=== PATIENT | female | born 1965 | race Caucasian/White ===

== ENCOUNTER 2023-11-19 08:59 | Outpatient (CLI) | payer BC, SELFPAY ==
[2023-11-19 09:45] LABS: Alanine Aminotransferase 21 U/L (6-35); Aspartate Amino Transferase 26 U/L (14-36)
== END 2023-11-19 09:00 | disposition home or self-care (01) ==
LOC: ANHLAB 09:02
PROVIDERS: PCP Physician Assistant; Visit Provider Podiatrist Foot & Ankle Surgery
DX: B35.1 Tinea unguium (principal)
CPT/HCPCS: 36415; 84450; 84460

== ENCOUNTER 2024-02-18 10:34 | Outpatient (CLI) | payer BC, SELFPAY ==
[2024-02-18 11:08] LABS: Basophils Absolute Auto 0.1 K/mm3 (0.0-0.1); Basophils Percent Auto 0.7 % (0.2-1.2); Eosinophils Absolute Auto 0.2 K/mm3 (0-0.3); Eosinophils Percent Auto 3.2 % (0-4.4); Hematocrit 45.9 % (37.0-47.0); Hemoglobin 15.2 g/dL (12.0-15.0); Immature Granulocyte Absolute 0.01 K/mm3 (0.00-0.031); Immature Granulocyte Percent A 0.1 % (0-0.5); Lymphocytes Absolute Auto 2.81 K/mm3 (0.9-3.2); Lymphocytes Percent Auto 40.8 % (18.3-44.2); Mean Corpuscular HGB Conc 33.1 g/dl (32-36); Mean Corpuscular Hemoglobin 31.5 pg (26-34); Monocytes Absolute Auto 0.4 K/mm3 (0.1-0.6); Monocytes Percent Auto 6.1 % (2.6-8.5); Neutrophils Absolute Auto 3.4 K/mm3 (1.3-6.7); Neutrophils Percent Auto 49.1 % (45.5-73.1); Platelet Count Result 197 k/mm3 (150-375); Red Blood Count 4.83 M/mm3 (4.2-5.4); Red Cell Distribution Width 12.3 % (11.5-14.5); White Blood Count 6.9 K/mm3 (4.5-10.0)
[2024-02-18 11:32] LABS: Alanine Aminotransferase 29 U/L (6-35); Albumin Level 4.8 g/dL (3.5-5.1); Alkaline Phosphatase 85 U/L (38-126); Anion Gap 7 mmol/L (4-12); Aspartate Amino Transferase 35 U/L (14-36); Bilirubin,Total 0.5 mg/dL (0.2-1.3); Blood Urea Nitrogen 11 mg/dL (7-17); Carbon Dioxide 27 mmol/L (22-30); Chloride 106 mmol/L (98-107); Cholesterol 188 mg/dL (0-200); Estimated Glomerular Filt Rate > 60; Glucose 127 mg/dL (65-110); HDL Direct 80 mg/dL; Hemoglobin A1C 6.8 % (<5.7); Potassium 4.3 mmol/L (3.4-5.0); Sodium 140 mmol/L (137-145); Triglycerides 165 mg/dL (<150)
[2024-02-18 11:43] LABS: LDL Cholesterol Direct 87 mg/dL
[2024-02-18 11:47] LABS: Iron 101 ug/dL (37-170); Vitamin D 25 Hydroxy 45.9 ng/mL
[2024-02-18 11:49] LABS: Creatinine Urine 248.7 mg/dL
[2024-02-18 11:54] LABS: MALB Creatinine Ratio 14.8 mg/g (0-30); Microalbumin Urine Random 36.9 mg/L (0-16.7)
[2024-02-18 11:55] LABS: Percent Iron Saturation 39 % (20-50)
[2024-02-18 12:44] LABS: Folic Acid 6.6 ng/mL (2.76->20); Free T4 Free Thyroxine 0.98 ng/mL (0.78-2.19)
== END 2024-02-18 10:35 | disposition home or self-care (01) ==
PROVIDERS: PCP Physician Assistant; Referring Provider Podiatrist Foot & Ankle Surgery; Visit Provider Physician Assistant
DX: E11.9 Type 2 diabetes mellitus without complications (principal); R41.3 Other amnesia; Z98.84 Bariatric surgery status; Z79.899 Other long term (current) drug therapy; Z13.220 Encounter for screening for lipoid disorders
CPT/HCPCS: 36415; 80053; 80061; 82043; 82306; 82607; 82728; 82746; 83036; 83540; 83550; 83735; 84439; 84443; 85025

== ENCOUNTER 2024-05-26 11:21 | Outpatient (CLI) | payer BC, SELFPAY ==
[2024-05-26 11:59] LABS: Basophils Percent Auto 0.6 % (0.2-1.2); Eosinophils Absolute Auto 0.1 K/mm3 (0-0.3); Eosinophils Percent Auto 1.5 % (0-4.4); Hematocrit 45.9 % (37.0-47.0); Hemoglobin 14.6 g/dL (12.0-15.0); Immature Granulocyte Absolute 0.01 K/mm3 (0.00-0.031); Immature Granulocyte Percent A 0.1 % (0-0.5); Mean Corpuscular HGB Conc 31.8 g/dl (32-36); Mean Corpuscular Hemoglobin 30.4 pg (26-34); Mean Corpuscular Volume 95.6 fl (80-100); Mean Platelet Volume 10.2 fl (7.4-10.4); Monocytes Absolute Auto 0.5 K/mm3 (0.1-0.6); Monocytes Percent Auto 6.7 % (2.6-8.5); Neutrophils Absolute Auto 3.6 K/mm3 (1.3-6.7); Neutrophils Percent Auto 53.1 % (45.5-73.1); Platelet Count Result 199 k/mm3 (150-375); Red Cell Distribution Width 12.5 % (11.5-14.5); White Blood Count 6.9 K/mm3 (4.5-10.0)
[2024-05-26 12:24] LABS: Alanine Aminotransferase 24 U/L (6-35); Albumin Level 4.8 g/dL (3.5-5.1); Alkaline Phosphatase 79 U/L (38-126); Anion Gap 6 mmol/L (4-12); Aspartate Amino Transferase 30 U/L (14-36); Bilirubin,Total 0.5 mg/dL (0.2-1.3); Blood Urea Nitrogen 15 mg/dL (7-17); Calcium 9.1 mg/dL (8.4-10.2); Carbon Dioxide 29 mmol/L (22-30); Chloride 103 mmol/L (98-107); Estimated Glomerular Filt Rate > 60; Glucose 91 mg/dL (65-110); Potassium 4.2 mmol/L (3.4-5.0); Sodium 138 mmol/L (137-145)
[2024-05-26 12:58] LABS: Free T4 Free Thyroxine 1.09 ng/mL (0.78-2.19)
== END 2024-05-26 11:22 | disposition home or self-care (01) ==
LOC: ANHLAB 11:27
PROVIDERS: PCP Physician Assistant; Referring Provider Podiatrist Foot & Ankle Surgery; Visit Provider Physician Assistant
DX: B35.1 Tinea unguium (principal); E11.9 Type 2 diabetes mellitus without complications
CPT/HCPCS: 36415; 80053; 83036; 84439; 84443; 85025

== ENCOUNTER 2024-06-30 08:00 | Outpatient (CLI) | payer BC, SELFPAY ==
--- NOTE | ~2024-06-30 | CT_ITS ---
EXAMINATION: CT abdomen pelvis w con DATE: 06/30/2024 08:41 INDICATION: Left lower quadrant abdominal pain TECHNIQUE: Computed tomography (CT) of the abdomen and pelvis was performed with 100 mL Omnipaque-350 intravenous contrast. Automated exposure control and iterative reconstruction technique were employe d. The dose-length product was 907.04 mGy-cm. COMPARISON: None FINDINGS: Lung bases are clear. Heart size is normal. No pericardial or pleural effusion. Small sliding-type hi atal hernia and postoperative change of prior sleeve gastrectomy with suture line along the greater c urvature of the stomach. A couple hepatic cysts the largest in the left hepatic lobe measuring 1.4 cm . Gallbladder, spleen, pancreas, bilateral adrenal glands and kidneys are normal. There is mild scatt ered diverticulosis without associated surrounding inflammatory stranding. There is however a short s egment of wall thickening at the proximal sigmoid colon. Differential would include focal colitis and acute or chronic diverticulitis. Normal appendix. No bowel obstruction. Normal partially decompresse d bladder. Age-appropriate uterine and bilateral adnexal atrophy. No abscess or free intraperitoneal gas or fluid. No pathologically enlarged abdominal or pelvic lymphadenopathy. Moderate bilateral sacr oiliitis. IMPRESSION: 1. Short segment of wall thickening at the proximal sigmoid colon with differential including localiz ed colitis or diverticulitis. Reviewed, dictated and finalized at location B. DESK MANAGER IMPRESSION: 1. Short segment of wall thickening at the proximal sigmoid colon with differen tial including localized colitis or diverticulitis.
== END 2024-06-30 08:01 | disposition home or self-care (01) ==
LOC: MICIMG 08:02
PROVIDERS: PCP Physician Assistant; Visit Provider Physician Assistant
DX: K63.89 Other specified diseases of intestine (principal); R10.32 Left lower quadrant pain
CPT/HCPCS: 74177; Q9967

== ENCOUNTER 2024-07-03 05:16 | Day surgery (SDC) | payer BC, SELFPAY ==
[2024-07-01 15:12] VITALS: BMI 36.0
[2024-07-03 07:55] VITALS: BP 141/85; PULSE 72; RESP 18; TEMP 36.1; O2SAT 97
[2024-07-03] MEDS: LACTATED RINGERS 1,000 ML 150 ML IV CONT (08:04)
--- NOTE | 2024-07-03 08:09 | P.PNAN_ITS ---
Anes - Initial Pre Proc Eval Procedure: Operation Date: 07/03/24 09:00 Proposed Procedures p Colonoscopy - Jose Manuel Townsend MD Date/Time: 07/03/24 08:09 Surgeon: Jose Manuel Townsend MD Pre Op Diagnosis: change in bowel habit Patient Data Age: 59 Gender: F Height: 1.5 m Weight: 82 kg Last Vital Signs Temp 97 F L 07/03/24 07:55 Pulse 72 07/03/24 07:55 Resp 18 07/03/24 07:55 BP 141/85 H 07/03/24 07:55 Pulse Ox 97 07/03/24 07:55 O2 Del Method Room Air 07/03/24 07:55 Allergies Allergy/AdvReac Type Severity Reaction Status Date / Time Penicillins AdvReac Intermediate Rash Verified 07/03/24 07:54 Home Medications Medication Instructions Recorded Confirmed Type atomoxetine 25 mg capsule 25 mg PO DAILY 07/01/24 07/01/24 History bupropion HCl 300 mg 24 hr tablet, 300 mg PO DAILY 07/01/24 07/01/24 History extended release fluoxetine 20 mg capsule 20 mg PO DAILY 07/01/24 07/01/24 History terbinafine HCl 250 mg tablet 250 mg PO DAILY 07/01/24 07/01/24 History Patient hx anesthesia problems: none Family hx anesthesia problems: none Results Review: All pre-operative results and documents have been reviewed as part of the pre- operative evaluation. [facility] Family History Family History Father Hypertension Cerebrovascular accident Sibling Hypertension Family history of elevated blood lipids Mother Family history of osteoarthritis Family history of elevated blood lipids Other Diabetes mellitus Family history of malignant neoplasm of ovary Social History Social History Smoking status: Never smoker Alcohol intake: current Drinks per week: 2 Alcohol use details: ON WEEKENDS Substance use: never Substance use type: does not use Living arrangements: with family Spiritual care concerns: No Anes - Eval Final PreProcedure Day of Procedure 07/03/24 08:09 Patient weight: obese Heart: regular rate and rhythm Lungs: clear to auscultation Airway: Mallampati scale and special considerations (Lower implant in place. ) Neurological: alert and oriented Last oral intake: >/= 8 hours ASA classification: II Emergent: no Anesthetic plan: proceed Anesthesia type and monitoring: general GIVS and standard monitoring Results Review: All pre-operative results and documents have been reviewed as part of the pre- operative evaluation. ADHD meds. Prev gastric sleeve and the pt has lost approx 30-60 pounds over several years. She walks 1-2 fos, no cp or sob. Informed Consent: The patient's anesthetic plan and its attendant risks and benefits were discussed with the patient/family/POA. Questions were solicited and answers provided to the satisfaction of the patient/family/POA.
--- NOTE | 2024-07-03 08:39 | PM.HPGS ---
History of Present Illness History of Present Illness Consent: Risks, benefits, and alternatives have been discussed and questions answered. Patient agrees to proceed with procedure. Chief complaint: change in bowel habit Narrative: Ayanna Burroughs is a 59 year old female with diverticulitis ruptured with small abscess treated with abx without surgery then had colonoscopy 2016. Recently noted change in bowel habits with more constipation, recent CT Scan showed thickening in sigmoid could be either colitis or diverticulitis. Review of Systems Review of Systems: All systems reviewed & are unremarkable except as noted in HPI and below PMFSH Past Medical History Medical History (Updated 07/03/24 @ 08:41 by Jose Manuel Townsend MD) Bowel habit changes History of diverticulitis Sigmoid thickening Family History Family History Father Hypertension Cerebrovascular accident Sibling Hypertension Family history of elevated blood lipids Mother Family history of osteoarthritis Family history of elevated blood lipids Other Diabetes mellitus Family history of malignant neoplasm of ovary Social History Social History Smoking status: Never smoker Alcohol intake: current Drinks per week: 2 Alcohol use details: ON WEEKENDS Substance use: never Substance use type: does not use Living arrangements: with family Spiritual care concerns: No Meds Home Medications and Allergies Home Medications Medication Instructions Recorded Confirmed Type atomoxetine 25 mg capsule 25 mg PO DAILY 07/01/24 07/01/24 History bupropion HCl 300 mg 24 hr tablet, 300 mg PO DAILY 07/01/24 07/01/24 History extended release fluoxetine 20 mg capsule 20 mg PO DAILY 07/01/24 07/01/24 History terbinafine HCl 250 mg tablet 250 mg PO DAILY 07/01/24 07/01/24 History Allergies Allergy/AdvReac Type Severity Reaction Status Date / Time Penicillins AdvReac Intermediate Rash Verified 07/03/24 07:54 Vital Signs Vital Signs - 24 hr 07/03/24 07:55 Temperature 97 F L Pulse Rate 72 Respiratory Rate 18 Blood Pressure 141/85 H Pulse Oximetry 97 Oxygen Delivery Room Air Exam Const: General: comfortable and no acute distress HENMT: Face/Nose/Sinus: Normal nares present Eyes: General: appearance normal, both eyes and all related structures Neck: Neck: no JVD Resp: Auscultation: clear to auscultation bilaterally Cardio: Rate: regular rate Rhythm: regular rhythm GI: Inspection: non-distended GI Palp: Yes Soft to palpation Skin: General skin exam: normal color Neuro: General: gait normal Speech: normal speech Extrem: General: normal to inspection Psych: Mental Status: mental status grossly normal Assessment and Plan Assessment and plan (1) History of diverticulitis: Code(s): Z87.19 - Personal history of other diseases of the digestive system Status: Acute (2) Sigmoid thickening: Code(s): K63.9 - Disease of intestine, unspecified Status: Acute Assessment and Plan: colonoscopy, noted recent CT scan (3) Bowel habit changes: Code(s): R19.4 - Change in bowel habit Status: Acute
[2024-07-03 08:59] VITALS: BP 117/65; PULSE 72; RESP 17; O2SAT 100
[2024-07-03 09:09] VITALS: BP 134/70; PULSE 75; RESP 20; O2SAT 100
[2024-07-03 09:19] VITALS: BP 119/81; PULSE 68; RESP 20; O2SAT 100
== END 2024-07-03 09:31 | disposition home or self-care (01) ==
PROVIDERS: PCP Physician Assistant; Referring Provider Physician Assistant; Visit Provider Internal Medicine Gastroenterology
PROC: 0DJD8ZZ Inspection of Lower Intestinal Tract, Via Natural or Artificial Opening Endoscopic (ICD-10-PCS; CPT 45378; principal; 2024-07-03 09:00)
DX: R19.4 Change in bowel habit (principal); K57.30 Diverticulosis of large intestine without perforation or abscess without bleeding; K64.8 Other hemorrhoids; Z87.19 Personal history of other diseases of the digestive system; E66.9 Obesity, unspecified; Z68.36 Body mass index [BMI] 36.0-36.9, adult
CPT/HCPCS: 45378; J2003; J2704; J7120

== ENCOUNTER 2024-09-17 15:23 | Outpatient (CLI) | payer BC, SELFPAY ==
--- NOTE | ~2024-09-17 | XR_ITS ---
CHEST RADIOGRAPH, PA AND LATERAL CLINICAL HISTORY: Wheezing . COMPARISON: None available TECHNIQUE: PA and lateral views of the chest. FINDINGS The cardiomediastinal silhouette is unremarkable. The lungs are clear. Visualized osseous structures and soft tissues are unremarkable. IMPRESSION: No focal infiltrate or effusion. Reviewed, dictated and finalized at location A. ICAL LABORATORY AIDE
== END 2024-09-17 15:24 | disposition home or self-care (01) ==
LOC: MICIMG 15:24
PROVIDERS: PCP Physician Assistant; Visit Provider Physician Assistant
DX: R06.2 Wheezing (principal)
CPT/HCPCS: 71046